=== PATIENT | male | born 1970 | race Caucasian/White ===

== ENCOUNTER 2016-12-03 09:56 | Outpatient (CLI) | payer OTHER ==
--- NOTE | 2016-12-03 11:43 | DIAGNOSTIC IMAGING REPORT ---
PROCEDURE: US SOFT TISSUE THYR/NECK/HEAD INDICATION: NEW PROMINENT MARVIN'S APPLE TECHNIQUE: Pereira scale and color Doppler sonographic images of the thyroid gland were obtained. COMPARISON: None. FINDINGS: There is a 2.3 x 1.9 x 1.8 cm complex midline cyst which appears to be part of the thyroid gland. RIGHT LOBE: Measures 5.6 x 1.8 x 2.1 cm. 6 mm solid well marginated nodule in the upper pole. Normal vascularity. LEFT LOBE: Measures 5.0 x 2.6 x 2.6 cm. There is an 8 mm complex cyst in the lower pole. Normal vascularity. ISTHMUS: Measures 5 mm. IMPRESSION: 1. 2.3 x 1.9 x 1.8 cm midline complex cyst which appears to arise from the thyroid. A thyroglossal cyst is less likely.
== END 2016-12-03 23:00 ==
LOC: US SRH 09:56
DX: E07.9 Disorder of thyroid, unspecified (principal)

== ENCOUNTER 2017-01-19 09:12 | Day surgery (SDC) | payer OTHER ==
[~2017-01-19] VITALS: Ht 177.8 cm; Wt 106.0 kg
[~2017-01-19 09:12] MED LIST: ASPIRIN ADULT L81 M1 PO; LISINOPRIL20 MG PO; REPATHA140 MG/ML; XARELTO20 MG PO
[2017-01-19] MEDS ORDERED: NORCO1 TA1 PO (13:52)
--- NOTE | 2017-01-19 13:53 | Provider's Discharge Care Plan ---
Problem, Goal, Plan Problem List 1. Thyroid nodule
--- NOTE | 2017-01-19 13:53 | Provider's Discharge Care Plan ---
Problem, Goal, Plan Problem List 1. Thyroid nodule
[2017-01-19 15:30] VITALS: BP 133/79
--- NOTE | 2017-01-20 11:53 | Operative Report ---
Operative Report Date of Surgery: 01/20/17 Preoperate Diagnosis: 1. thyroid nodule 2. multiple subcutaneous masses, 1 skin nodule Postoperative Diagnosis: same Surgeon: Jose Francisco Montero MD Procedure Performed: 1. excision of thyroid nodule 2. excision of lipoma x 9 3 exicison of skin lesion x 1 Anesthesia: The pt. was given a general anesthetic and prepped and draped in the usual sterile fashion for thyroid surgery. A local anesthetic of .25% marcaine with epi was used on this a subsequent incisions. A short transverse incision was made and the sub platysmal plane dissected. The midline strap muscles were split and a palpable hard nodule was found in the isthmus of the thyroid gland. It was carefully excised with cautery and hemostasis was complete. The wound was closed in layers with running 4- poly sorb and strips. The multiple marked lipomata were sequentially removed. They included an abdominal one 6x8 cm, left knee 2.5x1, left flank 2.5, 5, 2 cm in diameter, right wrist 3 cm, right upper arm 4.5 cm,left buttock 2 cm. A skin nodule 2 cm was excised with an ellipse of skin and subq. These wounds were closed with interupted or running subcuticular 4-0 poly sorb and strips. Surgical Technique: The pt. was taken to the main OR were he was prepped and draped in the usual sterile fashion. The neck was first approached. A local of .25% marcaine with epi was used. A transverse incision was made and the sub platysmal plane was dissected, the straps were seperated. The hard palpable nodule in the isthmus was pulled up and excised with the cautery. Hemostasis was complete and wound was closed with running 4-0 poly sorb in layers. Multiple subcutaneous lesions were excised in sequence including lesions 8cm of the abdomen, 5, 2, and 2.5 from the left flank, 2.5 left knee, 3 right wrist, 4.5 right upper arm, 2 left lower buttock. A 2 cm skin exicision was done for a full thickness skin lesion of the left upper buttock. All wounds were closed with interupted 4-0 poly sorb and steri strips.
== END 2017-01-19 15:34 | disposition home or self-care (01) ==
LOC: OR SRH 09:12 → SCU SRH 09:13 → OR SRH 11:00
PROVIDERS: Surgery
PROC: 0JBG0ZZ Excision of Right Lower Arm Subcutaneous Tissue and Fascia, Open Approach (ICD-10-PCS; principal; 2017-01-19 11:00)
PROC: 0JB80ZZ Excision of Abdomen Subcutaneous Tissue and Fascia, Open Approach (ICD-10-PCS; principal; 2017-01-19 11:00)
PROC: 0JB90ZZ Excision of Buttock Subcutaneous Tissue and Fascia, Open Approach (ICD-10-PCS; principal; 2017-01-19 11:00)
PROC: 0GBG0ZZ Excision of Left Thyroid Gland Lobe, Open Approach (ICD-10-PCS; principal; 2017-01-19 11:00)
PROC: 0JB70ZZ Excision of Back Subcutaneous Tissue and Fascia, Open Approach (ICD-10-PCS; principal; 2017-01-19 11:00)
PROC: 0JBP0ZZ Excision of Left Lower Leg Subcutaneous Tissue and Fascia, Open Approach (ICD-10-PCS; principal; 2017-01-19 11:00)
PROC: 0JBD0ZZ Excision of Right Upper Arm Subcutaneous Tissue and Fascia, Open Approach (ICD-10-PCS; principal; 2017-01-19 11:00)
DX: E04.1 Nontoxic single thyroid nodule (principal); D17.1 Benign lipomatous neoplasm of skin and subcutaneous tissue of trunk; D17.21 Benign lipomatous neoplasm of skin and subcutaneous tissue of right arm; D17.24 Benign lipomatous neoplasm of skin and subcutaneous tissue of left leg; D68.51 Activated protein C resistance; I10 Essential (primary) hypertension
CPT/HCPCS: 29229; 29240; 50002; 60001; 70002; 80102; 84038